=== PATIENT | female | born 1945 | race Caucasian/White ===

== ENCOUNTER 2016-07-20 13:19 | Emergency (ER) | payer OTHER ==
[2016-07-20 13:25] VITALS: RESP 16
--- NOTE | 2016-07-20 13:42 | EDPHY ---
H & P Stated Complaint: back pain dizzy & blurry vision Time Seen by Provider: 07/20/16 13:36 HPI/ROS: CHIEF COMPLAINT: Left-sided back pain HISTORY OF PRESENT ILLNESS: The patient is a 71 y/o female, with a history of asthma, arriving with her daughter complaining of waxing and waning sharp left flank and lower back pain since Thursday morning, 3 days ago. 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 She says, "I think I pulled a muscle in my back, it's just getting worse." Her pain is aggravated by standing and certain movements. She has been using a heating pad and Vicodin for pain with no alleviation. She has associated pain with deep inspiration and due to this as well as her chronic gluteal abscess she has been unable to lie down to sleep. She denies leg pain but does endorse bilateral calf swelling for the past month for which she started taking Cozaar and furosemide. She says she is compliant with all her medications. She reports she had a transient and very brief episode of blurred vision on the drive here that spontaneously resolved. She also notes a chronic cough improved for a while with prednisone after last ED visit on 06/27/16, but has started worsening again. She denies hematuria or any urinary symptoms. No recent fever. No new leg pain or weakness. No bowel or bladder changes. REVIEW OF SYSTEMS: A ten point review of systems was performed and is negative with the exception of the items mentioned in the HPI. Source: Patient, Family Exam Limitations: No limitations - Personal History Current Tetanus/Diphtheria Vaccine: Unsure Current Tetanus Diphtheria and Acellular Pertussis (TDAP): Unsure - Medical/Surgical History PMH: PMH includes: 1. Asthma 2. 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 Obesity 4. Lupus - no flare for over 20 years 5. Hypertension 6. Diabetes 7. Reported [place] PCP: Dr. Velázquez Prior medical records reviewed including ED visit on 06/27/16 for cough and gluteal abscess. Hx Asthma: Yes Hx Chronic Respiratory Disease: No Hx Diabetes: Yes Hx Cardiac Disease: No Hx Renal Disease: No Hx Cirrhosis: No Hx Alcoholism: No Hx HIV/AIDS: No Hx Splenectomy or Spleen Trauma: No Other PMH: Hypertension. Lupus. Asthma. Diabetes - Social History Smoking Status: Former smoker Additional Social History: Daughter at bedside is involved in care but lives in [place]. . She lives alone. - Physical Exam Exam: General Appearance: Alert. Obese. Vital signs reviewed. Blood pressure 147/90 Eyes: Pupils equal and round, no conjunctival injection, no discharge. Anicteric. ENT, Mouth: Mucous membranes are moist, no oropharyngeal erythema or edema. Neck: No lymphadenopathy, supple. Respiratory: Lungs are clear to auscultation; no wheezes, rales, or rhonchi. Cardiovascular: Regular rate and rhythm; no murmur, rub, or gallop. Gastrointestinal: Abdomen is obese, soft and nontender, no masses or organomegaly, bowel sounds normal. Skin: Warm and dry. Papular erythematous lesions across right upper lip. Lip lesions are without crusting or vesicles. left side of back below rib cage has erythematous papular lesions that are not vesicular on a bed of erythema extending into her left axillary region. No lesions on abdomen. Skin overall is normal in color. Both sides of gluteal fold with 6x2cm skin ulcerations that are superficial. Back: Nontender to palpation over the thoracolumbar spine. No CVAT. Extremities: Brawny edema of lower extremities. No calf tenderness. Neurological: Alert and oriented. Moving all four extremities easily and equally. Normal strength. Psychiatric: Normal affect. Constitutional: Initial Vital Signs Temperature (C) 36.9 C 07/20/16 13:23 Heart Rate 82 07/20/16 13:23 Respiratory Rate 16 07/20/16 13:23 Blood Pressure 147/90 H 07/20/16 13:23 O2 Sat (%) 92 07/20/16 13:23 O2 Delivery Mode Room Air Allergies/Adverse Reactions: No Known Allergies Allergy (Unverified 06/27/16 14:32) Home Medications: Medication Instructions Recorded Guaifenesin/Codeine Phosphate 10 ml PO HS PRN #120 ml 06/27/16 [Guaifenesin-Codeine Liquid] predniSONE [prednisone 20mg (RX)] 2 tab PO DAILY #6 tab 06/27/16 Acetaminophen/Codeine 300/30Mg 1 each PO Q6 PRN #20 tab 07/20/16 [Tylenol #3 (*)] Acyclovir [Zovirax] 800 mg PO 5XD #35 tab 07/20/16 Medical Decision Making ED Course/Re-evaluation: This is a 71 y/o female with multiple comorbidities presenting with a painful erythematous rash along her left back that extends into her axillary region. She first noticed the pain 3 days ago upon waking and attributes it to lifting a foot bath the night previously. She has been unable to find anything that alleviates it. She has no associated urinary symptoms or history of kidney stones. While the rash could be caused by her use of heating pads, it is not present on other parts of her body where she has used the pad (she has had a heating pad across both sides of her back). Pain is not changed by palpation and there is not point tenderness on exam. Her description of the pain and location of the rash is more consistent with shingles though it could be a musculoskeletal strain as well. No new focal neurologic findings. She will be discharged with antivirals, Tylenol 3 as requested by the patient, information on shingles, and instructions to follow up with her PCP early this week for reevaluation. She is comfortable with this plan. Return precautions given. She is aware of her elevated blood pressure in the emergency department. She is taking antihypertensives. She will follow up with her primary care physician. Departure - Departure Disposition: Home, Routine, Self-Care Clinical Impression: Shingles Qualifiers: Qualifier Code: (B02.9) Zoster without complications Lumbar back pain Qualifiers: Qualifier Code: (M54.5) Low back pain Condition: Good Instructions: Shingles (ED) Additional Instructions: 1. Follow up with Dr. Velázquez early this week, in the next 2-3 days, for reevaluation. 2. Take antiviral as prescribed. 3. Use Tylenol 3 as prescribed for pain. 4. Return to the ED for worsening of condition. Referrals: Kitty Velázquez MD [Primary Care Provider] - As per Instructions Prescriptions: Acetaminophen/Codeine 300/30Mg [Tylenol #3 (*)] 1 each PO Q6 PRN #20 tab PRN Reason: Pain, Moderate Acyclovir [Zovirax] 800 mg PO 5XD #35 tab Report Scribed for: Maryann Arellano Report Scribed by: Adrianna Boogie Date of Report: 07/20/16 Time of Report: 14:01 Physician Review and Approval Statement: 07/20/16 13:41 Portions of this note were transcribed by the medical physicist. I, Dr. Maryann Arellano, personally performed the history, physical exam, and medical decision- making; and confirmed the accuracy of the information in the transcribed note.
[2016-07-20 14:42] VITALS: BP 150/91; PULSE 85; TEMP 98.8; O2SAT 94
== END 2016-07-20 14:43 | disposition home or self-care (01) ==
DX: M54.5 Low back pain (principal); B02.9 Zoster without complications; J45.909 Unspecified asthma, uncomplicated; E11.9 Type 2 diabetes mellitus without complications; I10 Essential (primary) hypertension; I25.2 Old myocardial infarction